=== PATIENT | female | born 1990 | race Caucasian/White ===

== ENCOUNTER 2024-08-13 16:00 | Outpatient (CLI) | payer OTHER, SELFPAY | END 2024-08-13 16:01 | disposition home or self-care (01) | PROVIDERS: PCP Physician Assistant Medical; Visit Provider Physician Assistant Medical | DX: R73.03 Prediabetes (principal); Z13.220 Encounter for screening for lipoid disorders; Z13.21 Encounter for screening for nutritional disorder | CPT/HCPCS: 80061; 82607 ==

== ENCOUNTER 2025-06-16 05:34 | Emergency (ER) | payer OTHER, SELFPAY ==
--- OUTSIDE RECORDS SUMMARY | 2025-06-16 05:36 | XMS_ITS | Encounter Summary ---
Author Organization [facility] Address [address], [place] [address] Care Team Providers Care Motion Picture Equipment Machinist Name Role Phone Elida Perez PA-C Primary Care Provider Encounter Details Date Type Department Care Team (Late st Contact Info) Description 02/01/[address] [phone] James Matthew, [employer] LIABILITY PAW Social History Tobacco Use Types Packs/Day Years Used Date Smoking Tobacco: Never Smokeless Tobacco: Never Alcohol Use Standard Drinks/Week Comments Yes 0.8 (1 standard drink = 0.6 oz p ure alcohol) occ Comments No Sex and Gender Information Value Date Recorded Sex Assigned at Not on file Legal Sex Female 6:06 AM CDT Gender Identity Not on file Sexual Orientation Not on file documented as of this encounter Plan of Treatment Not on file documented as of this encounter Visit Diagnoses Not on filedocumented in this encounter Care Teams Motion Picture Equipment Machinist Relationship Specialty Start Date End Date Elida Perez PA-C [address] [place] [address] PCP - General Physician Subsea Engineer 02/27/13 09/10/23 documented as of this encounter
--- OUTSIDE RECORDS SUMMARY | 2025-06-16 05:36 | XMS_ITS | Clinical Summary ---
Author Organization [facility] Address [address] [place] [id number] Care Team Providers Care Curator Of Collections Name Role Phone [facility], [facility] Primary Care Pro vider Unavailable Allergies No known active allergies Medications ibuprofen (ADVIL; MOTRIN) 600 mg tablet Take 1 tablet by mouth 4 times daily with meals and at bedtime. Maximum of 3200 mg in 24 hours. 60 tablet 0 2 Active Phentermine HCl 30 mg capsule Take 1 capsule by mouth once daily before a meal. 0 7 Active metFORMIN (GLUCOPHAGE) 500 mg tablet Take 1 tablet by mouth 2 times daily with meals. 0 7 Active loratadine 10 mg cap Take by mouth. 0 7 Active ciprofloxacin HCl (CILOXAN) 0.3 % ophthalmic solutionIndications :Acute bacterial conjunctivitis of right eye Place 1-2 Drops into right eye 4 times daily. 5 mL 05/29/2017 12:22 PM CDT 7 Active Active Problems No known active problems Social History Tobacco Use Types Packs/Day Years Used Date Smoking Tobacco: Never Assessed Comments No Sex and Gender Information Value Date Recorded Sex Assigned at Not on file Legal Sex Female 8:42 AM SHANK SANDER Gender Identity Not on file Sexual Orientation Not on file Obstetrics History Last Filed Vital Signs Vital Sign Reading Time Taken Comments Blood Pressure 128/88 05/29/2017 11:52 AM CDT Pulse 76 05/29/2017 11:52 AM CDT Temperature 37.3 C (99.2 F) 05/29/2017 11:52 AM CDT Respiratory Rate 18 05/29/2017 11:52 AM CDT Oxygen Saturation 100% 05/29/2017 11:52 AM CDT Inhaled Oxygen Concentration - - Weight 88 kg (194 lb) 05/29/2017 11:52 AM CDT Height - - Body Mass Index - - Plan of Treatment Health Maintenance Due Date Last Done Comments Tetanus booster 2000 Depression screening for age 12+ 2001 HIV for age 15-65 2004 BMI (ht and wt on same day) for age 18+ 2007 Hepatitis C screening for ag e 18-79 2007 Hepatitis B series for 19+ ( 1 of 3 - 19+ 3-dose series) 2008 Pap test for age 21-65 2010 HPV series for age 9-45 (1 - 3-dose SCDM series) 2016 COVID-19 vaccine series ( - 2023- season) 2025 Influenza Vaccine (#1) 2025 RSV vaccine for adults or (1 - 1-dose 75+ series) 2064 Pneumococcal series for age 6-49 Aged Out No longer eligible based on patient's age to complete this topic Insurance [employer] Care Teams Curator Of Collections Relationship Specialty Start Date End Date Clinic, [facility] PCP - General 08/14/12
--- OUTSIDE RECORDS SUMMARY | 2025-06-16 05:36 | XMS_ITS | Clinical Summary ---
Author Organization [facility] Address [address], [place] [address] Care Team Providers Care Shear Grinder Operator Name Role Phone Unavailable Primary Care Provider Unavailabl e Source Comments You are receiving this document as you are listed as the primary care provider,follow-up provider, or the patient has been referred to you for consultation.This is in compliance with the Medicare andMedicaid EHR Incentive Program,which states Providers who transition their patient to another setting of careor provider of care or refers their patient to another provider of care shouldprovide summary care record for each transition of care or referral. [facility] Allergies Active Allergy Reactions Criticality Noted Date Comments Minocycline Hives 06/01/2008 Medications IBUPROFEN 200 MG OR TABS Take 1-2 tablets by mouth every 4-6 hours as needed for pain. Active Loratadine 10 MG capsule Take by mouth. 05/29/2017 Active multivitamin (THERAGRAN) tablet Take 1 Tablet by mouth daily. Active VITAMIN D, CHOLECALCIFEROL , OR Active Calcium Acetate, Phos Binder, (CALCIUM ACETATE OR) Active B Complex Vitamins (B COMPLEX-B12 TR OR) Active metFORMIN (GLUCOPHAGE) 500 MG tablet Take 2 Tablets (1,000 mg) by mouth two times a day with meals. 360 Tablet 07/21/2024 Active Active Problems Problem Noted Date Diagnosed Date Dysmenorrhea 05/02/2023 Screening for cervical cancer 04/16/2023 Overview (04/16/2023): 2013 NILM 2019 NILM Prediabetes 04/07/2019 Adult BMI 33.0-33.9 kg/sq m 06/07/2009 Migraine 01/30/2007 Tension headache 01/30/2007 Resolved Problems Problem Noted Date Diagnosed Date Resolved Date Overweight 01/30/2007 06/07/2009 Acne 01/29/2007 04/16/2023 Immunizations Immunization Administration Dates Next Due 4vHPV (Gardasil) 02/28/2013,06/07/2009 DTaP 05/27/1993, 1,07/05/1990,02/22/1990,1 11/22/1988 Flu Vac (3+ yrs) 06/07/2009 HepA Ped/Adol (1-18 yrs) 01/29/2007 HepB, Unspecified Formulation 12/01/1993, 993,03/23/1993 Hib, Unspecified Formulation 08/01/1991 IPV (Polio) 05/27/1993,12/27/1990,02/22/1990 ,1989 MCV4 (Menactra) 01/29/2007 MMR 05/27/1993,12/27/1990 Polio, Unspecified Formulation 05/27/1993,1990,02/22/1990,1989 TB Skin Test (PPD) 01/29/2007,07/05/1990 Tdap 01/29/2007 Family History Medical History Relation Name Comments Hyperlipidemia Father Hypertension Father Diabetes, Type II Maternal Grandmother an d brother and mat gm have pre-diabetes Cancer, Breast Other 1 mat great aun t Osteoporosis Other 2 mat great mothe r Macular Degeneration Other 3 great u ncle Cancer, Colon Negative Family History Cancer, Ovary Negative Family History Relation Name Status Comments Father Alive Mother Alive Brother Alive Maternal Grandfather Alive Maternal Grandmother Alive Other 1 Other 2 Paternal Grandfather Paternal Grandmother Alive Other 3 Social History Tobacco Use Types Packs/Day Years Used Date Smoking Tobacco: Never Smokeless Tobacco: Never Alcohol Use Standard Drinks/Week Comments Yes 0.8 (1 standard drink = 0.6 oz p ure alcohol) occ Comments No Sex and Gender Information Value Date Recorded Sex Assigned at Not on file Legal Sex Female 6:06 AM CDT Gender Identity Not on file Sexual Orientation Not on file Last Filed Vital Signs Vital Sign Reading Time Taken Comments Blood Pressure 134/89 09/06/2023 3:18 PM SINK MAKER Pulse 88 09/06/2023 3:18 PM SINK MAKER Temperature 36.8 C (98.3 F) 09/06/2023 3:18 PM SINK MAKER Respiratory Rate 16 09/06/2023 3:18 PM SINK MAKER Oxygen Saturation 99% 05/20/2019 2:36 PM CDT Inhaled Oxygen Concentration - - Weight 111.1 kg (245 lb) 09/06/2023 3:18 PM SINK MAKER Height 170 cm (5' 6.93) 04/16/2023 1:23 PM CDT Body Mass Index 38.45 04/16/2023 1:23 PM CDT Plan of Treatment Health Maintenance Due Date Last Done Comments Hep C Screening (Preventive Services) 1989 HIV Screening (Preventive Services) 2005 HepA Vaccine (2 of 2 - Risk 2-dose series) 07/31/2007 01/29/2007 Prediabetes: HGBA1C 02/01/2008 01/31/2007 HPV Vaccine (3 - 3-dose series) 05/23/2013 02/28/2013, 06/07/2009 DTaP/Tdap/Td Vaccine (7 - Tdap) 01/29/2017 01/29/2007, 05/27/1993, 08/01/1991, Additional history exists Adult Preventive Visit 04/16/2025 , 11/22/2018, 02/28/2013, Additional history exists COVID-19 Vaccine ( season) 2025 Influenza Vaccine (#1) 2025 06/07/2009 Cervical Cancer Screening 04/16/20282022, 04/16/2023, 11/22/2018, Additional history exists Zoster/Shingles Vaccine (1 of 2) 2039 Hib Vaccine Completed 08/01/1991 IPV (Polio) Vaccine Completed 05/27/1993, 05/27/1993, 12/27/1990, Additional history exists HepB Vaccine Completed 12/01/1993, 08, 03/23/1993 MCV4 Vaccine Completed 01/29/2007 Meningococcal B Vaccine Aged Out No l onger eligible based on patient's age to complete this topic Pneumococcal Vaccine Aged Out No long er eligible based on patient's age to complete this topic Procedures Procedure Name Priority Date/Time Associated Diagnosis Comments CYTOLOGY (PAP) Routine 04/16/2023 2:22 PM CDT Screening for malignant neoplasm of cervix HGB A1C Routine 01/31/2007 2:40 PM CDT Hyperglycemia from Last 3 Months or Most Recently Relevant to Health Maintenance Results * PAP Test (04/16/2023 2:22 PM CDT) Case Report Pap Case: [id number] Authorizing Provider: Lamonte Thornton MD Collected: 04/16/2023 1422 Ordering Location: [facility] [facility] and Received: 04/16/2023 1436 Gynecology First Screen: Ester Degroot CT (ASCP) Specimen: Pap Test, Routine, Cervix/Endocervix 05/01/2023 11:52 AM [facility] Pap Specimen Adequacy Satisfactory for evaluation, endocervical/brown sformation zone component absent. 05/01/2023 11:52 AM [facility] Pap Interpretation (NILM) Negative for intraepithelial lesion or malignancy. 05/01/2023 11:52 AM [facility] at 1152 CDT Pap Disclaimer The Pap test is a screening test to aid in the detection of cervical and vaginal cancers and their precursor lesions. It is not a diagnostic procedure and should not be used as the sole means of detecting malignancy. Both false-positive and false-negative results may occur. 05/01/2023 11:52 AM [facility] Gross Description The specimen is received in SurePath fixative and properly labeled. 1 Pap-stained SurePath slide is prepared. 05/01/2023 11:52 AM [facility] Embedded Images 11:52 AM [facility] Other Specimen Type ENTIRE ENDOCERVIX / Unknown 04/16/2023 2:22 PM CDT 04/16/2023 2:36 PM CDT Comment:LMP: No LMP recorded . us Lamonte Thornton MD [place] [address], [facility] [phone] * HGB A1C (01/31/2007 2:40 PM CDT) Hgb A1c 5.3 4.3 - 6.1 % [place] 01/31/2007 2:40 PM CDT 01/31/2007 2:41 PM CDT us Christa Moffett MD LAB[facility] [address] [id number] from Last 3 Months or Most Recently Relevant to Health Maintenance Insurance [facility]
--- OUTSIDE RECORDS SUMMARY | 2025-06-16 05:36 | XMS_ITS | Encounter Summary ---
Author Organization [facility] Address [address], [place] [address] Care Team Providers Care Automotive Glass Installer Name Role Phone Elida Perez PA-C Primary Care Provider Encounter Details Date Type Department Care Team (Late st Contact Info) Description 05/20/2019 Emergency Room External to [facility], Provider ED SIGNOUT NOTE Social History Tobacco Use Types Packs/Day Years [...] on filedocumented in this encounter Care Teams Automotive Glass Installer Relationship Specialty Start Date End Date Elida Perez PA-C [address] [place] [address] PCP - General Physician Interior Decorator 02/27/13 09/10/23 documented as of this encounter
[2025-06-16 05:40] VITALS: BP 173/105; PULSE 79; RESP 22; TEMP 36.2; O2SAT 98; BMI 40.7
--- NOTE | 2025-06-16 05:56 | ED.GENADULT ---
HPI - General Adult General Chief complaint: Abdominal Pain Stated complaint: lower abdominal pain,vomiting Time Seen by Provider: 06/16/25 05:56 History of Present Illness HPI narrative: Pt states that she awoke this morning with RLQ abdominal pain that she thought was ovulation pain but then she began vomiting. She reports lower middle abdominal pain now that feels like menstrual cramping. LMP was approx. 1.5 weeks ago. Pt actively vomiting upon arrival to ED. 35-year-old woman presenting to the emergency department with complaint of mid abdominal cramping pain. Was feeling a little nauseated and maybe lightheaded before she went to bed. Thought she had to have a bowel movement when she woke up and ended up having a lot. Sounds like was not actually diarrheal but just a lot of stool. Had intense abdominal pain indicating the right lower abdomen. And then subsequently a lot of vomiting. Pain has settled a little bit now. She has not started to get some signs that maybe she is going to have a migraine; some visual changes that she would associate with this typically. With she feels she is between waves of abdominal pain at this point. She has not had a fever. No hematochezia. No dysuria or hematuria was noted. LMP was about a week and half ago. Similar pain in the past in the right lower abdomen was evaluated with unremarkable ultrasound she says. Thought to be mittelschmerz. Later noting though when she did leave a urine sample she did see blood upon wiping that she thought might be vaginal. Related Data Home Medications ?Medication ?Instructions ?Recorded ?Confirmed cetirizine 10 mg tablet (Zyrtec) 10 mg PO QDAY 08/13/24 08/13/24 Previous Rx's ?Medication ?Instructions ?Recorded metformin 500 mg tablet 1,000 mg (2 x 500 mg) PO BIDWMEAL 08/14/24 #360 tabs Review of Systems Status of ROS: Reports: 6 or more systems reviewed and unremarkable except as noted in History and below PFSH PFSH Family History Paternal Grandmother Diabetes Maternal Grandmother Diabetes Father High blood pressure Brother High blood pressure Family/Other Breast cancer Social History Narrative: (Scott) . No Children Employed- Demolition Expert Enjoys reading, drawing, painting Exercise- 3 x per week Alcohol- 2 x per month No recreational drugs Smoking Status: Never smoker Do you use any of these nicotine containing products: None Second hand tobacco smoke exposure: No How often do you have a drink containing alcohol: monthly or less How many standard drinks containing alcohol do you have on a typical day: 1 or 2 How often do you have six or more drinks on one occasion: Never AUDIT-C Alcohol total score: 1 Non-prescribed substance use: denies use service: No Exam Narrative: Exam Narrative: Pleasant. Emesis bag in hand. Otherwise NAD. Oropharynx is little sticky. She is breathing easily. Lungs appear clear. Heart in regular rate and rhythm without murmur rub or gallop. Abdomen is overweight and soft. No apparent flank pain. Mild tenderness perhaps in the low right abdomen to right adnexal area. No masses appreciated. Genitourinary exam was not done. She is well-perfused in extremities without edema. Const: Vital Signs, click to edit/add: Vital Signs - 24 hr 06/16/25 05:40 06/16/25 07:28 06/16/25 08:47 Temperature 97.2 F L Pulse Rate 90 Pulse Rate [Pulse Oximeter] 79 79 Respiratory Rate 22 16 16 Blood Pressure 151/101 H Blood Pressure [Ri ght Upper Arm] 173/105 H 145/83 H Pulse Oximetry 98 98 96 Oxygen Delivery Me thod Room Air Room Air Room Air Documenting provider has reviewed patient's vital signs: yes Course Vital Signs Vital signs: Initial Vital Signs Temperature 97.2 F L 06/16/25 05:40 Temperature Source Temporal Artery Scan 06/16/25 05:40 Pulse Rate 79 06/16/25 05:40 Pulse Rhythm Regular 06/16/25 05:40 Respiratory Rate 22 06/16/25 05:40 Blood Pressure 173/105 H 06/16/25 05:40 Blood Pressure Mean 127 H 06/16/25 05:40 Blood Pressure Position Semi-Fowlers 06/16/25 05:40 Pulse Oximetry 98 06/16/25 05:40 Oxygen Delivery Method Room Air 06/16/25 05:40 Vital Signs Temperature 97.2 F L 06/16/25 05:40 Pulse Rate 79 06/16/25 05:40 Respiratory Rate 22 06/16/25 05:40 Blood Pressure 173/105 H 06/16/25 05:40 Pulse Oximetry 98 06/16/25 05:40 Oxygen Delivery Method Room Air 06/16/25 05:40 Temperature 97.2 F L 06/16/25 05:40 Pulse Rate 79 06/16/25 08:47 Respiratory Rate 16 06/16/25 08:47 Blood Pressure 145/83 H 06/16/25 08:47 Pulse Oximetry 96 06/16/25 08:47 Oxygen Delivery Method Room Air 06/16/25 08:47 Medications Administered Medications: Discontinued Medications Generic Name Dose Route Start Last Admin Trade Name Monicoq PRN Reason Stop Dose Admin Sodium Chloride 1,000 mls @ 1,000 mls/hr 06/16/25 06:05 06/16/25 07:29 0.9 % Sodium Chloride 1000 Ml IV 06/16/25 07:04 Infused .Q1H ONE Infusion Metoclopramide HCl 10 mg/ 102 mls @ 306 mls/hr 06/16/25 08:34 06/16/25 09:07 Sodium Chloride IVPB 06/16/25 08:35 Infused ONCE ONE Infusion Ketorolac Tromethamine 30 mg 06/16/25 06:05 06/16/25 06:11 Ketorolac 30 Mg/Ml Inj IVP 06/16/25 06:06 30 mg ONCE ONE Administration Ondansetron HCl 4 mg 06/16/25 06:05 06/16/25 06:11 Ondansetron 2 Mg/Ml Inj IVP 06/16/25 06:06 4 mg ONCE ONE Administration Medical Decision Making MDM Narrative Medical decision making narrative: Initially I requested urinalysis along with urine test. Certainly ectopic could present like this. It sounds as though might be having some intestinal colic following episode of intense bowel movement and vomiting. Will check labs though for further red flags might indicate further imaging. I am reassured generally by her abdominal exam at this point. Differential though might include intermittent ovarian torsion, urinary tract infection, ureteral stone and colic. Unlikely to have vascular dissection. Ordered for normal saline IV, ketorolac, Zofran On reassessment is improved. Later does began to have return of some nausea. She does feel that the blood that was seen on wiping was vaginal. Urinalysis though shows a rather clean collection. With hematuria only and without evidence of infection. With elevated white count of nearly 16,500. I suspect still that this was colicky pain. Again abdominal exam is reassuring and so I think less likely anything more significant going on but Heaven and her have been concerned understandably about degree of pain that was experienced. I think can proceed with imaging. I would proceed with noncontrast CT of abdomen and pelvis in light of the hematuria and the colicky intense pain she experienced, would like to look for potential ureteral stone; perhaps now passed in the bladder. CT scan independently reviewed by me I feel like there is some thickening of the uterine lining. I can not clearly identify a ureteral stone. Nor can I identify hydronephrosis. Radiology over-read below noting rather unremarkable CT imaging. INDICATION: Right lower abdominal, hematuria. TECHNIQUE: CT abdomen and pelvis without contrast. COMPARISON: None. FINDINGS: Lower chest: Unremarkable. Liver: Normal in size and attenuation. No suspicious masses on a non-contrast exam . Gallbladder and bile ducts: No stones or inflammation. No biliary dilatation. Pancreas: No mass or inflammation. Spleen: Normal in size. No masses. Adrenal glands: No suspicious mass. Kidneys: Normal in size. No stones, or hydronephrosis. GI tract: No bowel obstruction. Normal appendix. Vasculature: Abdominal aorta is normal in caliber. Lymph nodes: No lymphadenopathy. Peritoneum/Abdominal Wall: No free air or significant free fluid. Hernia. Small fat containing umbilical Pelvis: Uterus is normal in size and attenuation.. Bones: Limbus vertebrae at L4 level. No concerning bony lesion. IMPRESSION: No acute abnormality in abdomen and pelvis. Please note that all CT scans at this facility use dose modulation, iterative reconstruction, and/or weight-based dosing when appropriate to reduce radiation dose to as low as reasonably achievable. Dictated by Kofi Rg MD @ 06/16/2025 7:49:07 AM Zeke expresses some concern of possible endometriosis/endometritis. I think this is inconsistent with presentation here today. Mother now accompanying as well. They would like a an ultrasound to find out what might have happened. I do not think this is unreasonable as maybe there might be some evidence of torsion as well. Have requested the pelvic ultrasound. Discussed this with pressing machine operator. Noting polyps in the endometrium but otherwise unremarkable. Possibly constellation of symptoms here. Blood may well have been vaginal in light of the polyps as described and as reported by Heaven. Radiology over-read of ultrasound below INDICATION: Low right pelvic pain. TECHNIQUE: Ultrasound pelvis transvaginal for better assessment or to better visualize the endometrium. Real-time sonographic images with spectral and color Doppler imaging of the ovaries were obtained. COMPARISON: CT abdomen and pelvis 06/16/2025. FINDINGS: Uterus measures 7.4 x 3.6 x 4.3 cm. Uterus is homogeneous in echotexture, without evidence of discrete mass lesion. Endometrium: 12 mm in thickness. Rounded focus of increased echogenicity in the central endometrium with possible associated vascularity. No endometrial fluid. Right ovary measures 2.8 x 2.1 x 2.6 cm. Right ovary is within normal limits. Normal-appearing color Doppler flow in the right ovary. Left ovary measures 3.5 x 2 x 2.2 cm. Left ovary is within normal limits. Normal-appearing color Doppler flow in the left ovary. No pelvic free fluid. IMPRESSION: 1. Findings concerning for underlying endometrial polyp. Follow-up OBGYN consultation regarding further management recommended. 2. Otherwise, unremarkable pelvic ultrasound. Overall improved during time in the emergency department. Did receive a dose of Reglan for repeat of nausea as described above. See patient discharge plan for further discussion I do not doubt that you had pain. I am just not sure that I can absolutely tell you why. I am relieved that you are feeling better. Radiology has now also seen your ultrasound and confirms presence of uterine polyp. I would follow this up in women's health/OBGYN clinic. Prescribing Zofran for nausea from [facility]. Return for return of persistent, uncontrolled pain, repeated/intractable vomiting, associated fever. Medical Records Medical records reviewed: Yes I reviewed the patient's medical records Lab Data Lab results reviewed: Yes I reviewed the patient's lab results Labs: Lab Results 06/16/25 06/16/25 Range/Units 05:40 06:15 WBC 16.48 H (4.50-11.00) K/uL RBC 4.86 (4.00-5.20) m/uL Hgb 13.4 (12.0-16.0) gm/dL Hct 41.2 (33.0-51.0) % MCV 85 (80-100) fL MCH 28 (26-34) pg MCHC 33 (32-36) gm/dL RDW Coeff of Tiff 14.7 (11.5-15.5) % Plt Count 462 H (140-440) K/uL Neut % (Auto) 56.3 (42.0-72.0) % Lymph % (Auto) 24.0 (20-44) % [place] % (Auto) 10.9 (0.0-11.0) % Eos % (Auto) 8.3 H (0.0-7.0) % Baso % (Auto) 0.2 (0.0-3.0) % Neut # (Auto) 9.30 H (1.7-7.0) K/uL Lymph # (Auto) 4.00 H (0.90-2.90) K/uL [place] # (Auto) 1.80 H (0.00-0.90) K/UL Eos # (Auto) 1.40 H (0.00-0.50) K/uL Baso # (Auto) 0.00 (0.00-0.30) K/uL Abs Immat Gran (auto) 0.00 (0.00-0.30) K/uL Imm/Tot Granulo (auto) 0.3 % Sodium 138 (135-149) mmol/L Potassium 3.8 (3.6-5.1) mmol/L Chloride 103 (96-114) mmol/L Carbon Dioxide 23 (20-32) mmol/L Anion Gap 12 (7-15) mEq/L BUN 15 (5-24) mg/dL Creatinine 0.8 (0.5-1.5) mg/dL Estimated Creat Clear 94.54 Estimated GFR 98 ml/min Glucose 159 H (60-115) mg/dL Calcium 9.1 (8.4-10.6) mg/dL C-Reactive Protein 1.1 H (0.5-1.0) mg/dL Urine Color Yellow (Yellow) Urine Appearance Clear (Clear) Urine pH 6.0 (5.0-8.5) Ur Specific [place] >= 1.030 (1.000-1.030) Urine Protein 2+ A (Negative) Urine Glucose (UA) Negative (Negative) Urine Ketones Negative (Negative) Urine Blood 3+ A (Negative) Urine Nitrite Negative (Negative) Urine Bilirubin Negative (Negative) Urine Urobilinogen 0.2 (0.2-1.0) Ur Leukocyte Esterase Negative (Negative) Urine RBC 50-100 A (0-2) Urine WBC 0-2 (0-5) Ur Squamous Epith Cells Few (None-Few) Urine Bacteria Few A (None) Urine HCG, Qual Negative (Negative) Discharge Plan Discharge Clinical Impression: Abdominal pain, Vaginal bleeding, Vomiting, Uterine polyp Patient Disposition: Home w/ Parent or Adult Condition: Improved Additional Instructions: I do not doubt that you had pain. I am just not sure that I can absolutely tell you why. I am relieved that you are feeling better. Radiology has now also seen your ultrasound and confirms presence of uterine polyp. I would follow this up in women's health/OBGYN clinic. Prescribing Zofran for nausea from [facility]. Return for return of persistent, uncontrolled pain, repeated/intractable vomiting, associated fever. Prescriptions: No Action cetirizine [Zyrtec] 10 mg tablet 10 mg PO QDAY metformin 500 mg tablet 1,000 mg PO BIDWMEAL Qty: 360 3RF Rx Instructions: two tablets, twice daily for pre-diabetes Follow Up/Referrals: Britt Castillo PA-C [Primary Care Provider, Family Practice] Stand Alone Forms: [employer] Info Instructions
[2025-06-16] MEDS: ONDANSETRON 2 MG/ML inj 4 MG IVP (06:11)
[2025-06-16 06:21] LABS: Hematocrit* 41.2 % (33.0-51.0); Hemoglobin* 13.4 gm/dL (12.0-16.0); Immature Granulocytes Pct Auto 0.3 %; Mean Corpuscular HGB Conc 33 gm/dL (32-36); Mean Corpuscular Hemoglobin 28 pg (26-34); Mean Corpuscular Volume 85 fL (80-100); RDW Coefficient of Variation % 14.7 % (11.5-15.5); Red Blood Count* 4.86 m/uL (4.00-5.20); White Blood Count* 16.48 K/uL (4.50-11.00)
[2025-06-16 06:22] LABS: Chloride* 103 mmol/L (96-114)
[2025-06-16 06:23] LABS: Potassium* 3.8 mmol/L (3.6-5.1); Sodium* 138 mmol/L (135-149)
[2025-06-16 06:24] LABS: Immature Granulocytes Abs Auto 0.00 K/uL (0.00-0.30); Lymphocytes Absolute Auto 4.00 K/uL (0.90-2.90); Slide Review Reflex No
[2025-06-16 06:26] LABS: Anion Gap 12 mEq/L (7-15); Blood Urea Nitrogen* 15 mg/dL (5-24); Calcium* 9.1 mg/dL (8.4-10.6); Carbon Dioxide* 23 mmol/L (20-32); Creatinine* 0.8 mg/dL (0.5-1.5); Est. Creatinine Clearance* 94.54; Estimated Glomerular Filt Rate 98 ml/min; Glucose* 159 mg/dL (60-115)
[2025-06-16 06:34] LABS: Appearance Urine Clear (Clear)
[2025-06-16 06:35] LABS: Ur HCG Qualitative* Negative (Negative)
--- NOTE | 2025-06-16 07:14 | CRLHL7_ITS ---
For Patients: As a result of the Century Cures Act, medical imaging exams and procedure reports are released immediately into your electronic medical record. You may view this report before your referring provider. If you have questions, please contact your health care provider. INDICATION: Right lower abdominal, hematuria. TECHNIQUE: CT abdomen and pelvis without contrast. COMPARISON: None. FINDINGS: Lower chest: Unremarkable. Liver: Normal in size and attenuation. No suspicious masses on a non-contrast exam . Gallbladder and bile ducts: No stones or inflammation. No biliary dilatation. Pancreas: No mass or inflammation. Spleen: Normal in size. No masses. Adrenal glands: No suspicious mass. Kidneys: Normal in size. No stones, or hydronephrosis. GI tract: No bowel obstruction. Normal appendix. Vasculature: Abdominal aorta is normal in caliber. Lymph nodes: No lymphadenopathy. Peritoneum/Abdominal Wall: No free air or significant free fluid. Hernia. Small fat containing umbilical Pelvis: Uterus is normal in size and attenuation.. Bones: Limbus vertebrae at L4 level. No concerning bony lesion. IMPRESSION: No acute abnormality in abdomen and pelvis. Please note that all CT scans at this facility use dose modulation, iterative reconstruction, and/or weight-based dosing when appropriate to reduce radiation dose to as low as reasonably achievable. Dictated by Kofi Rg MD @ 06/16/2025 7:49:07 AM (Electronically Signed)
[2025-06-16 07:28] VITALS: BP 151/101; PULSE 90; RESP 16; O2SAT 98
--- NOTE | 2025-06-16 08:19 | CRLHL7_ITS ---
For Patients: As a result of the Century Cures Act, medical imaging exams and procedure reports are released immediately into your electronic medical record. You may view this report before your referring provider. If you have questions, please contact your health care provider. INDICATION: Low right pelvic pain. TECHNIQUE: Ultrasound pelvis transvaginal for better assessment or to better visualize the endometrium. Real-time sonographic images with spectral and color Doppler imaging of the ovaries were obtained. COMPARISON: CT abdomen and pelvis 06/16/2025. FINDINGS: Uterus measures 7.4 x 3.6 x 4.3 cm. Uterus is homogeneous in echotexture, without evidence of discrete mass lesion. Endometrium: 12 mm in thickness. Rounded focus of increased echogenicity in the central endometrium with possible associated vascularity. No endometrial fluid. Right ovary measures 2.8 x 2.1 x 2.6 cm. Right ovary is within normal limits. Normal-appearing color Doppler flow in the right ovary. Left ovary measures 3.5 x 2 x 2.2 cm. Left ovary is within normal limits. Normal-appearing color Doppler flow in the left ovary. No pelvic free fluid. IMPRESSION: 1. Findings concerning for underlying endometrial polyp. Follow-up OBGYN consultation regarding further management recommended. 2. Otherwise, unremarkable pelvic ultrasound. Dictated by Law Pugh MD @ 06/16/2025 9:05:38 AM Dictated by: Law Pugh MD @ 06/16/2025 09:06:05 (Electronically Signed)
[2025-06-16] MEDS: METOCLOPRAMIDE HCL 10 MG in 0.9 % SODIUM CHLORIDE 100 ml 100 ML 306 MG IVPB (08:46)
[2025-06-16 08:47] VITALS: BP 145/83; PULSE 79; RESP 16; O2SAT 96
== END 2025-06-16 09:27 | disposition home or self-care (01) ==
PROVIDERS: Emergency Provider Family Medicine; PCP Physician Assistant Medical
DX: N84.0 Polyp of corpus uteri (principal); N93.9 Abnormal uterine and vaginal bleeding, unspecified; R11.10 Vomiting, unspecified
CPT/HCPCS: 36415; 74176; 76830; 80048; 81001; 81025; 85025; 86140; 87086; 93976; 96365; 96375; 99284; J1885; J2405; J2765; J7030

== ENCOUNTER 2025-06-23 13:10 | Outpatient (CLI) | payer OTHER, SELFPAY ==
[2025-06-25 02:47] LABS: HPV Source Cervix
[2025-06-26 08:51] LABS: Pap Test Digital Imaging Done
== END 2025-06-23 13:11 | disposition home or self-care (01) ==
PROVIDERS: PCP Physician Assistant Medical; Visit Provider Obstetrics & Gynecology
DX: Z12.4 Encounter for screening for malignant neoplasm of cervix (principal); Z11.51 Encounter for screening for human papillomavirus (HPV)
CPT/HCPCS: 87624; 87625; 88141; 88142; 88175

== ENCOUNTER 2025-07-08 10:57 | Outpatient (CLI) | payer OTHER, SELFPAY | END 2025-07-08 10:58 | disposition home or self-care (01) | LOC: NFLDREF 07-10 15:09 | PROVIDERS: PCP Physician Assistant Medical; Referring Provider Physician Assistant Medical; Visit Provider Physician Assistant Medical | DX: Z01.818 Encounter for other preprocedural examination (principal) | CPT/HCPCS: 87086 ==

== ENCOUNTER 2025-07-22 06:01 | Day surgery (SDC) | payer OTHER, SELFPAY ==
[2025-07-22] VITALS (8 sets, daily range): BP systolic 146–169; BP diastolic 83–125; PULSE 53–90; RESP 16; TEMP 36.6; O2SAT 95–100; BMI 41.1
[2025-07-22 06:46] LABS: Ur HCG Qualitative* Negative (Negative)
[2025-07-22 07:07] LABS: Hemoglobin* 12.8 gm/dL (12.0-16.0)
[2025-07-22] MEDS: LACTATED RINGERS 500 ML 500 ML 100 ML IV (07:09)
[2025-07-22] MEDS: SODIUM CHLORIDE 0.9 % (FLUSH) 10 ML SYRINGE IVF (07:09)
--- NOTE | 2025-07-22 07:22 | W.PM.H&PU ---
History & Physical Update History & Physical Update H&P Reviewed and patient assessed: No changes noted
[2025-07-22] MEDS: LACTATED RINGERS 1000 ML 1,000 ML 100 ML IV (07:50)
[2025-07-22] MEDS: BUPIVACAINE 0.5% 30 ML INJECTION (07:57)
--- NOTE | 2025-07-22 08:13 | P.GYNPRC_ITS ---
Procedure Note Date of procedure: 07/22/25 Will [facility] bill your pro fee for this procedure?: Yes Pre-op diagnosis: Abnormal Uterine bleeding suspected endometrial polyps Post-op diagnosis: Abnormal uterine bleeding suspected endometrial polyp Procedure: Hysteroscopy, dilation and curettage Anesthesia: MAC Complications: None Surgeon: Agustin Pitts MD Estimated blood loss (mL): 5 IV fluids (mL): 600 Urine Output (mL): 200 Pathology: specimen obtained, sent to pathology Condition: stable Disposition: same day Findings: Findings: Normal external genitalia. Speculum exam: Grossly normal cervix without visible lesions or abnormal discharge. Intrauterine cavity: Multiple polypoid lesions in the endometrium. Procedure Description: Patient was taken to the OR were MAC anesthesia was administered without difficulty. She was placed in the dorsal lithotomy position with Gael type stirrups. Patient was then prepared and draped in the normal sterile fashion. A bivalved speculum was inserted in the posterior aspect of the vagina. 0.5% Marcaine was injected at 2 and 11 o'clock a total of about 5mL utilized. A single-tooth tenaculum was used to grasp the anterior lip of the cervix. The cervical os was sequentially dilated to accommodate the 5 mm TrueClear hysteroscope using Hegar dilators. A 5 mm 30 degree TrueClear hysteroscope was introduced under direct visualization, and the uterus was distended with normal saline. Findings as above. Soft tissue incisor blade from TrueClear hysteroscope system was introduced under direct visualization and endometrial curettings performed with removal of polypoid lesions. Hysteroscope removed under direct visualization. Tenaculum was removed from the cervix and good hemostasis was noted at puncture sites. Patient tolerated the procedure well. Instrument and sponge counts were correct x2. The patient was awakened from MAC anesthesia and taken to the recovery room in a stable condition. The patient will go home after recovering from anesthesia and meeting all the criteria for discharge. She was given instruction regarding follow-up visit in 2 weeks at [facility] and instructions for pain medication. Fluid deficit: 100mL
--- NOTE | 2025-07-22 08:23 | P.ANES_ITS ---
Anesthesia Charges Start Date/Time Anesthesia Start Date: 07/22/25 Anesthesia Start Time: 07:30 Stop Date/Time Anesthesia Stop Date: 07/22/25 Anesthesia Stop Time: 08:21 Coding CPT Codes CPT Codes: ANESTH HYSTEROSCOPE/GRAPH - 93058 ([id number]) P3 - PATIENT W/SEVERE SYS DISEASE, QZ - COMBATANT DIVER OFFICER SVC W/O CHEMIST WATER PURIFICATION BY
--- NOTE | 2025-07-22 08:23 | W.ANESCHARGE ---
Anesthesia Charges Start Date/Time Anesthesia Start Date: 07/22/25 Anesthesia Start Time: 07:30 Stop Date/Time Anesthesia Stop Date: 07/22/25 Anesthesia Stop Time: 08:21 Coding CPT Codes CPT Codes: ANESTH HYSTEROSCOPE/GRAPH - 18196 ([id number]) P3 - PATIENT W/SEVERE SYS DISEASE, QZ - WAX PATTERN COATER SVC W/O LINOTYPIST BY
[2025-07-22] MEDS: ACETAMINOPHEN 500 MG TABLET 1000 MG PO (09:11)
--- NOTE | 2025-07-22 09:37 | SUR.PHASEII ---
0926: On story writer's entry to room, pt resting in bed. Family at the bedside. VSS baseline Denies any other needs at this time. Call light within reach.
== END 2025-07-22 10:09 | disposition home or self-care (01) ==
PROVIDERS: PCP Physician Assistant Medical; Visit Provider Obstetrics & Gynecology
PROC: 0UDB8ZZ Extraction of Endometrium, Via Natural or Artificial Opening Endoscopic (ICD-10-PCS; CPT 58558; principal; 2025-07-22 07:30)
DX: N93.8 Other specified abnormal uterine and vaginal bleeding (principal); N84.0 Polyp of corpus uteri
CPT/HCPCS: 58558; 00952; 36415; 81025; 85018; 88305; A9270; C1782; J0665; J1100; J1885; J2250; J2405; J2704; J3010; J3490; J7120

== ENCOUNTER 2025-09-11 09:19 | Outpatient (CLI) | payer OTHER, SELFPAY | END 2025-09-11 09:20 | disposition home or self-care (01) | PROVIDERS: PCP Physician Assistant Medical; Visit Provider Physician Assistant Medical | DX: I10 Essential (primary) hypertension (principal); Z32.01 Encounter for pregnancy test, result positive | CPT/HCPCS: 84443; 84702; 86703; 86706; 86780; 86803; 86850; 86900; 86901; 87340 ==

== ENCOUNTER 2025-09-13 10:24 | Outpatient (CLI) | payer OTHER, SELFPAY | END 2025-09-13 10:25 | disposition home or self-care (01) | LOC: LAB 10:27 | PROVIDERS: Obstetrics & Gynecology; PCP Physician Assistant Medical | DX: O20.9 Hemorrhage in early pregnancy, unspecified (principal) | CPT/HCPCS: 36415; 84702 ==

== ENCOUNTER 2025-10-05 11:48 | Outpatient (CLI) | payer OTHER, SELFPAY ==
--- NOTE | 2025-10-05 12:15 | CRLHL7_ITS ---
For Patients: As a result of the Cures Act, medical imaging exams and procedure reports are released immediately into your electronic medical record. You may view this report before your referring provider. If you have questions, please contact your health care provider. OB ULTRASOUND LESS THAN 14 WEEKS CLINICAL HISTORY: Dating and viability. COMPARISON: None. TECHNIQUE: Grayscale and color Doppler ultrasound of the uterus and ovaries from a transvaginal approach. Transvaginal ultrasound of the pelvis was performed to better evaluate the genitourinary organs such as the ovaries and/or endometrium. FINDINGS: Imaging: TV. LMP: 08/07/2025. RIP by LMP: 05/14/2026. GA: 8 weeks 3 days. CRL: 1.6 cm, 8 weeks 0 days. 05/17/2026. FHR: 176 bpm. GEST SAC: 3.0 cm, appears WNL. YOLK SAC: 3.4 cm, appears WNL. RIGHT OV: 3.0 x 1.5 x 1.9 cm. LEFT OV: 3.6 x 2.2 x 2.4 cm. CL. IMPRESSION: 1. Single living intrauterine measures 8 weeks 0 days with sonographic due date 05/17/2026. 2. Corpus luteal cyst left ovary measures 2.2 x 1.4 x 1.9 cm. Clint Fitch M.D. Diagnostic Radiologist [email or web address] Transcribed: 4:15 pm DW/Dictated by: Clint Fitch MD @ 10/05/2025 12:32:00 PM (Electronically Signed)
== END 2025-10-05 11:49 | disposition home or self-care (01) ==
LOC: US 11:49
PROVIDERS: PCP Physician Assistant Medical; Visit Provider Physician Assistant
DX: O26.891 Other specified pregnancy related conditions, first trimester (principal); O34.82 Maternal care for other abnormalities of pelvic organs, second trimester; N83.12 Corpus luteum cyst of left ovary; Z3A.08 8 weeks gestation of pregnancy; I10 Essential (primary) hypertension; R73.03 Prediabetes
CPT/HCPCS: 76817; 82570; 83021; 84156; 84450; 84460; 84550; 86704; 86762; 86787; 86850; 86900; 86901; 87086; 87491; 87591

== ENCOUNTER 2025-10-05 13:15 | Outpatient (CLI) | payer OTHER, SELFPAY ==
[2025-10-05 19:12] LABS: Chlamydia DNA Amplified* NOT DETECTED (No Detected); GC DNA Amplified* NOT DETECTED (No Detected)
== END 2025-10-05 13:16 | disposition home or self-care (01) ==
PROVIDERS: PCP Physician Assistant Medical; Visit Provider Physician Assistant
DX: Z34.91 Encounter for supervision of normal pregnancy, unspecified, first trimester (principal); I10 Essential (primary) hypertension; R73.03 Prediabetes
CPT/HCPCS: 82570; 83020; 83021; 84156; 84450; 84460; 84550; 85660; 86704; 86762; 86787; 86850; 86900; 86901; 87086; 87491; 87591

== ENCOUNTER 2025-10-07 07:30 | Outpatient (CLI) | payer OTHER, SELFPAY | END 2025-10-07 07:31 | disposition home or self-care (01) | LOC: NFLDREF 10-13 16:00 | PROVIDERS: PCP Physician Assistant Medical; Referring Provider Physician Assistant Medical; Visit Provider Physician Assistant | DX: I10 Essential (primary) hypertension (principal); R73.03 Prediabetes | CPT/HCPCS: 82570; 84156 ==